=== PATIENT | female | born 1960 | race Caucasian/White ===

== ENCOUNTER 2025-04-21 06:57 | Inpatient (IN) | payer MEDICARE, OTHER ==
[~2025-04-21] VITALS: Ht 160 cm; Wt 76.9 kg
[2025-04-21 08:13] LABS: INR 1.18 (0.91-1.10)
[2025-04-21] MEDS ORDERED: BUPIVACAINE 0.5 % PF 150 MG/30 ML VIAL ONE (08:14)
[2025-04-21] MEDS ORDERED: GENTAMICIN 80 MG/2 ML VIAL ONE (08:14)
[2025-04-21] MEDS ORDERED: VANCOMYCIN 1 GM VIAL ONE (08:14)
[2025-04-21] MEDS ORDERED: CEFAZOLIN 1 GM ONE (08:14)
[2025-04-21] MEDS ORDERED: dexaMETHasone SOD PHOSPHATE 1 ML ONE (08:14)
[2025-04-21] MEDS ORDERED: LIDOCAINE HCL/MPF 1% 30 ML VIAL IJ ONE (08:14)
[2025-04-21] MEDS ORDERED: POLYMYXIN B SULFATE 500,000 UNITS ONE (08:14)
[2025-04-21] MEDS ORDERED: LIDOCAINE 2%-EPI 1:100,000 30 ML VIAL ONE (08:21)
[2025-04-21] MEDS ORDERED: ROCURONIUM BROMIDE 50 MG/5 ML ONE (08:24)
[2025-04-21] MEDS ORDERED: FENTANYL PF 250MCG/5ML AMPUL ONE (08:24)
[2025-04-21] MEDS ORDERED: LABETALOL HCL IV 100MG VIAL ONE (09:47)
[2025-04-21] MEDS: PIPERACILLIN /TAZOBACTAM 3.375 G in IV D5W 50 ML IV ONE (10:00)
[2025-04-21] MEDS ORDERED: ONDANSETRON HCL/PF 4 MG/2 ML VIAL IV PRN (13:00)
[2025-04-21] MEDS ORDERED: ACETAMINOPHEN 325 MG TABLET PO PRN (13:00)
[2025-04-21] MEDS ORDERED: IV NS 0.9% 1,000 ML IV PRN (13:00)
[2025-04-21] MEDS ORDERED: P-EPHED SUL/LORATADINE(12H) 1 TAB.SR.12H PO SCH (13:00)
[2025-04-21] MEDS: CHLORHEXIDINE GLUCONATE 15 ML UDC MM SCH (13:00)
[2025-04-21 14:00] VITALS: BP 114/75; TEMP 97.2
[2025-04-21] MEDS: HYDROMORPHONE 1 MG/1 ML DISP.SYRIN IV PRN (14:21)
[2025-04-21] MEDS: P-EPHED SUL/LORATADINE (24H) 1 TAB.SR.24H PO SCH (15:00)
[2025-04-21] MEDS: ZOSYN IVPB 3.375 G in IV D5W 50ml IV SCH (15:05)
[2025-04-21 16:00] VITALS: BP 117/55; TEMP 97.5; O2SAT 100
[2025-04-21] MEDS ORDERED: CHLO473M2 MM (18:26)
[2025-04-21] MEDS ORDERED: EMPA10TA PO (18:26)
[2025-04-21] MEDS ORDERED: METO25TA4 PO (18:26)
[2025-04-21] MEDS ORDERED: ASPI-1169 PO (18:26)
[2025-04-21] MEDS ORDERED: ERGO500093 PO (18:26)
[2025-04-21] MEDS ORDERED: AMOX1TAB16 PO (18:26)
[2025-04-21] MEDS ORDERED: HYDR-3972 PO (18:26)
[2025-04-21] MEDS ORDERED: METH4TAB16 PO (18:26)
[2025-04-21] MEDS ORDERED: FERR325T24 PO (18:26)
[2025-04-21] MEDS ORDERED: GLIM4TAB37 PO (18:26)
[2025-04-21 20:00] VITALS: BP 124/65; TEMP 97.9; O2SAT 100
[2025-04-21] MEDS: VANCOMYCIN 1 GM in IV D5W 250ml IV SCH (20:32)
== END 2025-04-22 12:35 | disposition home or self-care (01) | DRG 141 ==
LOC: DS 06:57 → MED 12:40
PROC: 0NSR04Z Reposition Maxilla with Internal Fixation Device, Open Approach (ICD-10-PCS; 2025-04-21)
PROC: 0NUV07Z Supplement Left Mandible with Autologous Tissue Substitute, Open Approach (ICD-10-PCS; 2025-04-21)
PROC: 0NUR07Z Supplement Maxilla with Autologous Tissue Substitute, Open Approach (ICD-10-PCS; 2025-04-21)
PROC: 0N5R0ZZ Destruction of Maxilla, Open Approach (ICD-10-PCS; 2025-04-21)
PROC: 0N5V0ZZ Destruction of Left Mandible, Open Approach (ICD-10-PCS; 2025-04-21)
PROC: 09BQ0ZZ Excision of Right Maxillary Sinus, Open Approach (ICD-10-PCS; 2025-04-21)
PROC: 0WB30ZZ Excision of Oral Cavity and Throat, Open Approach (ICD-10-PCS; 2025-04-21)
PROC: 0NSR04Z Reposition Maxilla with Internal Fixation Device, Open Approach (ICD-10-PCS; 2025-04-21)
PROC: 09UQ07Z Supplement Right Maxillary Sinus with Autologous Tissue Substitute, Open Approach (ICD-10-PCS; 2025-04-21)
PROC: 0KX10Z2 Transfer Facial Muscle with Skin and Subcutaneous Tissue, Open Approach (ICD-10-PCS; 2025-04-21)
PROC: 0JB10ZZ Excision of Face Subcutaneous Tissue and Fascia, Open Approach (ICD-10-PCS; 2025-04-21)
PROC: 0NSV04Z Reposition Left Mandible with Internal Fixation Device, Open Approach (ICD-10-PCS; principal; 2025-04-21 08:30)
DX: S02.40CA Maxillary fracture, right side, initial encounter for closed fracture (principal); I51.81 Takotsubo syndrome; K12.2 Cellulitis and abscess of mouth; S02.609A Fracture of mandible, unspecified, initial encounter for closed fracture; E11.9 Type 2 diabetes mellitus without complications; I10 Essential (primary) hypertension; I08.0 Rheumatic disorders of both mitral and aortic valves; D16.5 Benign neoplasm of lower jaw bone; D16.4 Benign neoplasm of bones of skull and face; J32.0 Chronic maxillary sinusitis; M27.2 Inflammatory conditions of jaws; X58.XXXA Exposure to other specified factors, initial encounter; Y92.9 Unspecified place or not applicable; M84.9 Disorder of continuity of bone, unspecified; K13.79 Other lesions of oral mucosa; M60.9 Myositis, unspecified; K13.21 Leukoplakia of oral mucosa, including tongue
CPT/HCPCS: 36415; 82962-TC; 85610-TC; 85730-TC; 88305-TC; 88311-TC; A4223; A4338; C1713; G0378; J0461; J0690; J1100; J1171; J1580; J2543; J2704; J3010; J3373; J3490; J7030; J7050; J7060